=== PATIENT | female | born 1960 | race Caucasian/White ===

== ENCOUNTER 2017-04-18 13:11 | Emergency (ER) | payer OTHER ==
--- NOTE | ~2017-04-18 | CT2 ---
[facility]. [facility] A Service of [facility] RADIOLOGY TEXT RESULTS PATIENT: ALBAN TAYLOR LOCATION: SED : 60 UNIT #: [id number] AGE: [address]: Bennie Solorio MD SEX: F ORDER DR: [id number] [place] [id number] E MR#: [id number] Acc #: [id number] NAME: ALBAN TAYLOR : 1960 SEX: F STUDY DATE/TIME: 04/18/2017 15:35 UNIT: SED ROOM: STUDY DESCRIPTION: CT Abd and Pelv W Cont Attending Physician: Bennie Solorio M.D. Ordering Physician: Bennie Solorio M.D. Primary Care Physician: No Primary Care Physician MEDICAL IMAGING REPORT This report is preliminary unless electronic signature is present. EXAM CT abdomen and pelvis without contrast HISTORY Abdominal pain and bloating starting 3 days ago prior Lbaine fundoplication and cholecystectomy. COMPARISON CT abdomen and pelvis 01/23/[address] exam was performed with one or more of the following radiation dose reduction techniques: automatic control, adjustment of mA and/or kV according to patient size, and iterative reconstruction. FINDINGS Axial images performed through the abdomen and pelvis following IV contrast. Lung bases remarkable for extensive basilar fibrosis and cystic change most likely representing either emphysema or idiopathic pulmonary fibrosis. There is a densely calcified left lower lobe granuloma. Liver and spleen unremarkable. There is moderate intra and extrahepatic ductal dilatation in this patient post cholecystectomy. No discrete obstructing lesion is identified. Pancreas, kidneys and adrenal glands unremarkable. The visualized GI tract to include the appendix unremarkable. Retroperitoneum unremarkable. PELVIS: Bladder is distended. Uterus absent. Osseous structures remarkable for L4-5, L5-S1 degenerative disc disease. IMPRESSION 1. Evidence of severe lung disease within both lung bases most likely representing underlying emphysema or pulmonary fibrosis. 2. Patient is post cholecystectomy with moderate intra and extrahepatic STS. [facility] A Service of [facility] RADIOLOGY TEXT RESULTS PATIENT: ALBAN TAYLOR LOCATION: SED : 60 UNIT #: [id number] AGE: [address]: Bennie Solorio MD SEX: F ORDER DR: ductal dilatation. This can be a normal finding in a post cholecystectomy patient. Correlate with patient's laboratory data. Dictated by... Vashti Roblero M.D. THIS IS AN ELECTRONICALLY VERIFIED REPORT Vashti Roblero M.D. at 04/19/2017 1:01 PM WARD/eliza TD: 04/18/2017 23:33 JOB #: [id number] MEDICAL IMAGING REPORT Page 1 of 1
[~2017-04-18 13:11] MED LIST: AMITRYPTYLINE PO; BACLOFEN10 MG PO; CIPRO PO; IBUPROFEN200 M1; NEURONTIN600 MG PO; PHENERGAN25 MG PO; PROTONIX PO; PROTONIX20 MG PO; PYRIDIUM PO; ULTRAM PO; VICODIN 5/500 T1 TAB PO; VOLTAREN PO; XARELTO15 MG
[2017-04-18] MEDS ORDERED: LOMOTIL WHITE2.5 M1 PO (13:25)
[2017-04-18] MEDS ORDERED: BENTYL20 MG PO (13:26)
[2017-04-18] MEDS ORDERED: NEURONTIN800 MG PO (13:26)
[2017-04-18] MEDS ORDERED: PHENERGAN25 M1 PO (13:26)
[2017-04-18 14:05] LABS: URINE SOURCE CLEAN CATCH
[2017-04-18 14:08] LABS: URINE APPEARANCE CLEAR; URINE BILIRUBIN NEG (NEG); URINE BLOOD NEG (NEG); URINE COLOR YELLOW; URINE GLUCOSE NEG (NORM); URINE KETONE NEG (NEG); URINE LEUKOCYTE ESTERASE 1+ (NEG); URINE NITRATE NEG (NEG); URINE PROTEIN NEG (NEG); URINE SPECIFIC GRAVITY <=1.005 (1.003-1.035); URINE UROBILINOGEN 0.2 MG/DL (NORM)
[2017-04-18 14:10] LABS: MICRO INDICATED? YES
[2017-04-18 14:14] LABS: BASOPHIL# 0.1 X10e3 (0-0.3); BASOPHIL% 1.2 % (0-2.5); EOSINOPHIL# 0.1 X10e3 (0-0.7); EOSINOPHIL% 2.2 % (0.0-7.0); HEMATOCRIT 33.9 % (35.0-45.0); HEMOGLOBIN 11.1 gm/dL (12.0-16.0); LYMPHOCYTE# 1.7 X10e3 (1.0-3.5); LYMPHOCYTE% 25.6 % (17.0-45.0); MEAN CELL VOLUME 78.1 FL (83-96); MEAN CORPUSCULAR HEMOGLOBIN 25.5 PG (28-34); MEAN CORPUSCULAR HGB CONC 32.6 g/dL (30-36); MEAN PLATELET VOLUME 6.9 FL (6.5-11.5); MONOCYTE# 0.4 X10e3 (0-1.0); MONOCYTE% 6.4 % (3.0-12.0); NEUTROPHIL# 4.2 X10e3 (1.5-7.1); NEUTROPHIL% 64.6 % (40-75); PLATELET COUNT 228 X10e3 (140-420); RED BLOOD COUNT 4.34 X10e (3.90-5.30); WHITE BLOOD COUNT 6.6 X10e3 (4.0-10.5)
[2017-04-18 14:16] LABS: CULTURE INDICATED? YES; URINE BACTERIA NEG (NEG); URINE RBC NEG /[HPF] (0-2); URINE SQUAMOUS EPITHELIAL CELL OCCAS /[HPF]; URINE WBC 25-50 /[HPF] (0-5)
[2017-04-18 14:17] LABS: URINE MUCUS PRESENT
[2017-04-18 14:19] LABS: DIFF IND NO
[2017-04-18 14:40] LABS: ALBUMIN SERUM 3.6 g/dL (3.5-5.0); ALKALINE PHOSPHATASE 77 U/L (32-92); ALT (SGPT) 12 U/L (10-40); AMYLASE 50 U/L (0-46); AST (SGOT) 15 U/L (10-42); BILIRUBIN, DIRECT <0.1 mg/dL (0.0-0.2); BILIRUBIN,INDIRECT 0.1 mg/dL (0.0-0.9); BILIRUBIN,TOTAL 0.2 mg/dL (0.2-2.0); BLOOD UREA NITROGEN 12 mg/dL (9-23); CALCIUM SERUM 8.6 mg/dL (8.4-10.2); CARBON DIOXIDE 25 mmol/L (22-31); CHLORIDE 107 mmol/L (100-111); CREATININE SERUM 0.6 mg/dL (0.6-1.4); GLOM FILT RATE Estimated 101.9 mL/min (>60); GLUCOSE FASTING 106 mg/dL (70-110); LIPASE 78 U/L (22-51); POTASSIUM 3.7 mmol/L (3.5-5.1); PROTEIN TOTAL SERUM 6.7 g/dL (6.0-8.3); SODIUM 134 mmol/L (135-145)
== END 2017-04-18 16:29 | disposition home or self-care (01) ==
LOC: SED 13:11
PROVIDERS: Emergency Medicine
DX: K85.90 Acute pancreatitis without necrosis or infection, unspecified (principal); N39.0 Urinary tract infection, site not specified; J44.9 Chronic obstructive pulmonary disease, unspecified; K21.9 Gastro-esophageal reflux disease without esophagitis; Z90.710 Acquired absence of both cervix and uterus; Z90.49 Acquired absence of other specified parts of digestive tract; F17.210 Nicotine dependence, cigarettes, uncomplicated; Z88.1 Allergy status to other antibiotic agents
CPT/HCPCS: 36415; 74177; 80048; 80076; 81003; 82150; 83605; 83690; 85025; 87086; 96361; 96374; 96375; 96376; 99284; C9113; J2270; J2405; Q9967

== ENCOUNTER 2017-04-23 15:39 | Emergency (ER) | payer OTHER ==
[~2017-04-23 15:39] MED LIST changes: +BENTYL20 MG PO; +LOMOTIL WHITE2.5 M1 PO; +NEURONTIN800 MG PO; +PHENERGAN25 M1 PO
== END 2017-04-23 16:20 | disposition home or self-care (01) ==
LOC: SED 15:39
DX: R10.84 Generalized abdominal pain (principal); R11.0 Nausea; F17.210 Nicotine dependence, cigarettes, uncomplicated; Z79.899 Other long term (current) drug therapy; Z88.1 Allergy status to other antibiotic agents; Z88.8 Allergy status to other drugs, medicaments and biological substances
CPT/HCPCS: 36415; 96372; 99284

== ENCOUNTER 2017-04-24 13:16 | Emergency (ER) | payer OTHER ==
[~2017-04-24] VITALS: Ht 157.5 cm; Wt 53.5 kg
--- NOTE | ~2017-04-24 | CR2 ---
[facility] A Service of [facility] RADIOLOGY TEXT RESULTS PATIENT: ALBAN TAYLOR LOCATION: [facility] : 60 UNIT #: [id number] AGE: [address]: Jalyn Hua MD SEX: F ORDER DR: [id number] [facility] [address] [facility] [place], [place] [address] [id number] E MR#: [id number] Acc #: [id number] NAME: ALBAN TAYLOR : 1960 SEX: F STUDY DATE/TIME: UNIT: [facility] ROOM: STUDY DESCRIPTION: CR Abdomen Acute Series Attending Physician: Jalyn Hua M.D. Ordering Physician: Jalyn Hua M.D. Primary Care Physician: Primary Care Physician No MEDICAL IMAGING REPORT This report is preliminary unless electronic signature is present EXAM Acute abdomen series 04/24/2017 1552 hours HISTORY 56-year-old woman with 1-week history of abdominal pain, nausea, vomiting and diarrhea. Bloating and distension. COMPARISON CT abdomen 04/18/2017 FINDINGS Upright chest demonstrates normal cardiac, mediastinal and hilar contours. There are calcified granulomatous changes. The lungs are clear and there are no effusions. Images through the abdomen demonstrate a nonspecific bowel gas pattern. There are clips consistent with prior post cholecystectomy. There are no suspicious calcifications. No free air is seen. IMPRESSION 1. Emphysematous changes in the lungs. No acute cardiopulmonary findings. 2. No bowel obstruction or free air. There are right upper quadrant clips consistent with prior cholecystectomy. Dictated by... Manisha Santos M.D. THIS IS AN ELECTRONICALLY VERIFIED REPORT Manisha Santos M.D. at 04/25/2017 6:50 PM SMM/to TD: 04/24/2017 22:42 JOB #: [id number] [facility] A Service of [facility] RADIOLOGY TEXT RESULTS PATIENT: ALBAN TAYLOR LOCATION: [facility] : 60 UNIT #: [id number] AGE: [address]: Jalyn Hua MD SEX: F ORDER DR: MEDICAL IMAGING REPORT Page 1 of 1 COPY
[2017-04-24 14:25] LABS: BASOPHIL# 0.1 X10e3 (0-0.3); BASOPHIL% 1.3 % (0-2.5); EOSINOPHIL# 0.2 X10e3 (0-0.7); EOSINOPHIL% 2.8 % (0.0-7.0); HEMATOCRIT 38.5 % (35.0-45.0); HEMOGLOBIN 12.5 gm/dL (12.0-16.0); LYMPHOCYTE# 1.5 X10e3 (1.0-3.5); LYMPHOCYTE% 20.4 % (17.0-45.0); MEAN CELL VOLUME 78.9 FL (83-96); MEAN CORPUSCULAR HEMOGLOBIN 25.5 PG (28-34); MEAN CORPUSCULAR HGB CONC 32.4 g/dL (30-36); MEAN PLATELET VOLUME 6.7 FL (6.5-11.5); MONOCYTE# 0.5 X10e3 (0-1.0); MONOCYTE% 6.4 % (3.0-12.0); NEUTROPHIL% 69.1 % (40-75); PLATELET COUNT 315 X10e3 (140-420); RED BLOOD COUNT 4.88 X10e (3.90-5.30); RED CELL DISTRIBUTION WIDTH 22.8 % (11.0-15.5); WHITE BLOOD COUNT 7.3 X10e3 (4.0-10.5)
[2017-04-24 14:27] LABS: DIFF IND YES
[2017-04-24 14:39] LABS: PLATELET ESTIMATE NORMAL (NORMAL); RBC NORMAL YES
[2017-04-24 14:40] LABS: ANISOCYTOSIS MOD; HYPOCHROMIA SL; MICROCYTOSIS SL
[2017-04-24 14:52] LABS: ALBUMIN SERUM 4.2 g/dL (3.5-5.0); ALKALINE PHOSPHATASE 103 U/L (32-92); ALT (SGPT) 18 U/L (10-40); AMYLASE 19 U/L (0-46); AST (SGOT) 15 U/L (10-42); BILIRUBIN,TOTAL 0.2 mg/dL (0.2-2.0); BLOOD UREA NITROGEN 9 mg/dL (9-23); BUN/CREATININE RATIO 12.85; CALCIUM SERUM 9.1 mg/dL (8.4-10.2); CARBON DIOXIDE 26 mmol/L (22-31); CHLORIDE 107 mmol/L (100-111); CREATININE SERUM 0.7 mg/dL (0.6-1.4); GLOM FILT RATE Estimated 96.9 mL/min (>60); GLUCOSE FASTING 97 mg/dL (70-110); LIPASE 21 U/L (22-51); POTASSIUM 4.5 mmol/L (3.5-5.1); PROTEIN TOTAL SERUM 8.1 g/dL (6.0-8.3); SODIUM 140 mmol/L (135-145)
[2017-04-24 14:54] LABS: BILIRUBIN, DIRECT <0.1 mg/dL (0.0-0.2); BILIRUBIN,INDIRECT 0.1 mg/dL (0.0-0.9)
== END 2017-04-24 17:45 | disposition home or self-care (01) ==
LOC: CED 13:16
DX: R10.84 Generalized abdominal pain (principal); F17.210 Nicotine dependence, cigarettes, uncomplicated; Z90.49 Acquired absence of other specified parts of digestive tract; Z79.899 Other long term (current) drug therapy
CPT/HCPCS: 36415; 74022; 80048; 80076; 82150; 83690; 84703; 85025; 96372; 99284; J1170